=== PATIENT | male | born 1975 | race Caucasian/White ===

== ENCOUNTER 2018-02-17 08:59 | Emergency (ER) | payer BC, SELFPAY ==
[2018-02-17] VITALS (49 sets, daily range): BP systolic 104–195; BP diastolic 62–159; PULSE 57–156; RESP 10–29; TEMP 36.6; O2SAT 92–99
--- NOTE | 2018-02-17 09:08 | DI.CT_ITS ---
SYMPTOMS/DIAGNOSIS: CHEST PAIN AND TACHYCARDIA CHEST CT FOR PULMONARY EMBOLISM: CT angiography was performed with multi slice acquisition and multi planar and 3D reconstruction. There are no previous exams. There is no evidence of pulmonary emboli or aortic dissection. No infiltrate or effusion is seen. There is no evidence of pneumothorax. The visualized portions of the upper abdomen are unremarkable. IMPRESSION: Negative chest CT.
--- NOTE | 2018-02-17 09:14 | ED.GENADUL_ITS ---
Discharge Plan Disposition Patient Disposition: HOME Condition: Stable Discharge Details Chief Complaint: Palpitatns Clinical Impression: Atrial fibrillation, new onset Primary Care Provider: NONE,NONE ED Provider: Clement Palmer Home Meds and New Rx's Prescriptions: New diltiazem HCl [Cartia XT] 180 mg capsule,extended release 24hr 180 mg PO DAILY Qty: 30 RF: 0 Continue naproxen sodium [Aleve] 220 mg Capsule 220 mg PO PRNRF: 0 Discharge Instructions Instructions: Atrial Fibrillation (ED) Additional Instructions: you should be contacted with an appointment with a new primary care provider within a week take 81mg aspirin daily your primary care provider will need to prescribe the cardizem once finished if they feel you should continue it return to the emergency department for severe worsening pain or difficulty breathing Medical Decision Making 42 yo male who denies chronic medical problems comes in feeling his heart is beating fast since 1am. Denies any pressure or significant pain. Denies any sob or recent travel or surgeries. Is noted to be in afib with rvr and states he has never been diagnosed with this before. Will obtain lab work to eval for ischemia and treat with diltiazem. Given the tachycardia and unclear cause will obtain CT to eval for PE as well Pt's labs unremarkable, HR now in the 90's and stil in afib. Awaiting imaging imaging shows no acute pathology, HR did increase to 130's so second dose of IV dilt given and now in the 90's and remains HD stable. ADmission was recommended but after discussion with the pt and him remaining asymptomatic and hd stable with controlled hr he preferred to go home, has capacity to make his own decisions. He is willing to stay for a second troponin. Will order this. his [id number] score is 0 so no indication for anticoagulation second troponin negative, Hr in the 90's now and astymptomic, is sleeping on last exam. Will d/c home and return precautions given. Placed on f/u list to see a pcp within a week for new afib Differential Diagnosis acs, afib with rvr, pe Imaging Data Radiologic Study: Attestation: I personally reviewed and interpreted this imaging study as follows: Imaging: CT Scan Radiologist's impression: no acute findings Lab Data Lab results reviewed: Yes I reviewed the patient's lab results. ECG Data Attestation: I personally reviewed and interpreted this ECG (s) as follows: Prior ECG tracings: not available for review Interpretation: atrial fibrillation, rate of 152, right axis, no acute ischemic st findings 2nd ekg shows afib wih rate of 90, no acute st t wave changes, right axis, HPI General Mode of arrival: ambulatory . Date/Time Provider Initiated Documentation: 02/17/18 09:07 . Limitations to Documentation: no limitations . History of Present Illness 42 year old M presents to the emergency department with the chief complaint of palpitations, described as moderate, with intensity rated at 4. and is localized to the chest. Patient reports no radiation. Patient started experiencing this hour(s) (8) and it has been constant. No relieving factors improve symptom(s), No exacerbating factors reported . Patient notes no other symptoms.. Patient did receive the following treatments prior to arrival, none Related Data Home Medications Medication Instructions Recorded Confirmed diltiazem HCl [Cartia XT] 180 mg PO DAILY #30 cap 02/17/18 naproxen sodium [Aleve] 220 mg PO PRN 02/17/18 Previous Rx's Medication Instructions Recorded diltiazem HCl [Cartia XT] 180 mg PO DAILY #30 cap 02/17/18 Allergies Allergy/AdvReac Type Severity Reaction Status Date / Time No Known Allergies Allergy Unverified 02/17/18 09:13 Review of Systems Review of Systems All systems reviewed & are unremarkable except as noted in HPI and below Constitutional Denies chills, Denies fever(s) and Denies weakness Eyes Denies loss of vision ENT Denies change in voice Cardiovascular Denies chest pain and Denies dyspnea Respiratory Denies dyspnea Gastrointestinal Denies abdominal pain, Denies nausea and Denies vomiting Genitourinary Denies dysuria Musculoskeletal Denies joint swelling Integumentary/Breasts Denies rash Neurologic Denies loss of vision and Denies weakness Psychiatric Denies depression Endocrine Denies cold intolerance and Denies heat intolerance PFSH Social History Smoking/Tobacco Use Status: Former Tobacco Use Exam Const General: no acute distress Orientation: alert HENMT Head: normal to inspection Ears: external ears normal General nose exam: external nose normal Mouth: moist mucous membranes Eyes General: appearance normal, both eyes and all related structures Neck Neck: normal visual inspection Resp Effort & Inspection: normal respiratory effort and able to speak in complete sentences Cardio Jugular venous pressure: no JVD Rate: tachycardic Skin General skin exam: no rashes or lesions noted Neuro General: alert and oriented x3 Extrem General: normal to inspection Psych Mental Status: mental status grossly normal Critical Care Time Critical Care Time: Yes Total Critical Care Time: 60 (minutes) Attestation: time spent reviewing labs and ecg interpretation, reassessments, and hemodynamic monitoring and IV lorraine alessio administration in patient with afib with rvr and potential to deteriorate at any time
[2018-02-17 09:16] LABS: Abs Immature Grans 0.01 k/cumm (0.0-0.09); Absolute Basophil Count 0.04 k/cumm (0.0-0.2); Absolute Eosinophil Count 0.26 k/cumm (0.0-0.7); Absolute Lymphocyte Count 2.16 k/cumm (1.2-3.4); Absolute Monocyte Count 0.57 k/cumm (0.11-0.7); Basophils % 0.7; Eosinophils % 4.4; HCT 44.3 % (40.0-50.0); HGB 15.7 g/dL (13.5-17.5); Immature Grans % 0.2; Lymphocytes % 36.4; Mean Corp. HGB Concentration 35.4 g/dL (32.0-36.0); Mean Corpuscular Hemoglobin 31.4 pg (27.0-33.0); Mean Corpuscular Volume 88.6 fL (80-95); Mean Platelet Volume 9.2 fL (8.0-11.0); Monocytes % 9.6; Neutrophils % 48.7; Platelet Count 231 x1000/uL (130-400); White Blood Cell Count 5.94 k/cumm (4.4-10.8)
[2018-02-17 09:30] LABS: INR 1.1 (1.0-3.5); PTT Activated 23.7 sec (21.0-31.4); Prothrombin Time 10.5 sec (9.3-10.8)
[2018-02-17 09:35] LABS: ALT 34 U/L (12-78); AST 17 U/L (15-37); Albumin 4.1 g/dL (3.4-5.0); Alkaline Phosphatase 80 U/L (46-116); Anion Gap 10.5 mmol/L (3-11); BUN 17 mg/dL (7-18); Bilirubin, Total 0.8 mg/dL (0.2-1.0); CO2 26.5 mmol/L (21.0-32.0); CREATININE 0.98 mg/dL (0.70-1.30); Calcium 9.1 mg/dL (8.5-10.1); Chloride 102 mmol/L (98-107); Glucose 113 mg/dL (70-100); NT-proBNP 190 pg/mL; Potassium 4.2 mmol/L (3.5-5.1); Sodium 139 mmol/L (136-145); Total Protein 7.3 g/dL (6.4-8.2)
[2018-02-17 09:37] LABS: Troponin I < 0.02 ng/mL (0.00-0.06)
[2018-02-17] MEDS: Omnipaque 350 MG/ML 100 ML BTL IJ (09:48)
--- NOTE | 2018-02-17 10:07 | DI.VRAD_ITS ---
EXAM: CT Angiography Chest With Intravenous Contrast EXAM DATE/TIME: 02/17/2018 9:11 AM CLINICAL HISTORY: 42 years old, male; Pain and signs and symptoms; Other: Tachycardia; Chest pain; Type not specified TECHNIQUE: Axial computed tomographic angiography images of the chest with intravenous contrast using CT angiography protocol. All CT scans at this facility use at least one of these dose optimization techniques: automated exposure control; mA and/or kV adjustment per patient size (includes targeted exams where dose is matched to clinical indication); or iterative reconstruction. Coronal and sagittal reformatted images were created and reviewed. MIP reconstructed images were created and reviewed. CONTRAST: 100 ml of Omnipaque 350 administered intravenously. COMPARISON: No relevant prior studies available. FINDINGS: Pulmonary arteries: Normal. No pulmonary emboli. Aorta: Normal. No aortic aneurysm. No aortic dissection. Lungs: Normal. No consolidation. No masses. Pleural space: Normal. No pneumothorax. No pleural effusion. Heart: Normal. No cardiomegaly. No pericardial effusion. Bones/joints: Unremarkable. No acute fracture. Soft tissues: Unremarkable. Lymph nodes: Unremarkable. No enlarged lymph nodes. IMPRESSION: No acute findings. Dictated and Authenticated by: Zulema Mitchell MD. Ordering:RIKI SHOEMAKER MD
[2018-02-17 12:16] LABS: Troponin I < 0.02 ng/mL (0.00-0.06)
--- NOTE | 2018-02-19 08:27 | PDOC.ERCMPRO ---
Care Management Progress Note 02/19-Dr. 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 Patient does not have a PCP. Referral faxed to SHAYNA dodd am.
--- NOTE | 2018-02-19 08:28 | CMPROGNOTE_ITS ---
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 Patient does not have a PCP. Referral faxed to SHAYNA dodd am.
== END 2018-02-17 12:53 | disposition home or self-care (01) ==
PROVIDERS: Emergency Provider Emergency Medicine
DX: I48.91 Unspecified atrial fibrillation (principal); I47.2 Ventricular tachycardia
CPT/HCPCS: 36415; 71275; 80053; 93005; 96374; 96376; 99291; 83735; 83880; 84484; 85025; 85610; 85730; 93010; J3490

== ENCOUNTER 2018-02-28 08:13 | Outpatient (CLI) | payer BC, SELFPAY ==
[2018-02-28 10:16] LABS: Cholesterol 180 mg/dL (50-200); HDL Cholesterol 32 mg/dL (40-60); LDL CHOLESTEROL 103 mg/dL (<100); TSH (W/Ref FT4) 2.43 uIU/mL (0.358-3.74); Triglyceride 248 mg/dL (30-150)
== END 2018-02-28 08:33 ==
PROVIDERS: PCP Family Medicine; Visit Provider Family Medicine
DX: I48.91 Unspecified atrial fibrillation (principal)
CPT/HCPCS: 36415; 80061; 83721; 84443

== ENCOUNTER 2018-03-06 00:39 | Outpatient (CLI) | payer BC, SELFPAY ==
--- NOTE | 2018-03-06 06:00 | MERGE_ITS ---
*[facility]* *[facility]* [address] [place] [address] Date of study: 03/06/2018 Transthoracic Echocardiography M-mode, complete 2D, complete spectral Doppler, and color Doppler *STUDY CONCLUSIONS* Summary: 1. Left ventricle: The cavity size was normal. Wall thickness was normal. Systolic function was normal. The estimated ejection fraction was 60-65%. Wall motion was normal; there were no regional wall motion abnormalities. 2. Right ventricle: The cavity size was dilated. Systolic function was normal. 3. Left atrium: The atrium was mildly dilated. 4. Mitral valve: There was mild regurgitation. 5. Inferior vena cava: The vessel was patent and normal in size. The respirophasic diameter changes were in the normal range (greater than or equal to 50%), consistent with normal central venous pressure. *PATIENT PRESENTATION* Height: 190.5cm ((75in) ) S/D Pressure: 116 / 63 Weight: 117.9kg ((259.5lb) ) BSA: 2.53m^2 Test start time: 07:40 AM. Test stop time: 08:40 AM. 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 This study was interpreted by [facility]. Pertinent images and digital data are archived for permanent storage and are available for subsequent review. No prior study was available for comparison. Study status: Routine. Transthoracic echocardiography. M-mode, complete 2D, complete spectral Doppler, and color Doppler. A Transthoracic Echocardiogram was performed. Scanning was performed from the parasternal, apical, subcostal, and suprasternal notch acoustic windows. Images were obtained using an [id number] cardiac ultrasound machine. Image quality was adequate. Study completion: The patient tolerated the procedure well. There were no complications. History: PMH: New onset afib. *CARDIAC ANATOMY* Left ventricle: The cavity size was normal. Wall thickness was normal. Systolic function was normal. The estimated ejection fraction was 60-65%. Wall motion was normal; there were no regional wall motion abnormalities. Findings consistent with diastolic dysfunction. There was no evidence of elevated ventricular filling pressure by Doppler parameters. Aortic valve: Trileaflet; normal thickness leaflets. Mobility was not restricted. Doppler: Transvalvular velocity was within the normal range. There was no stenosis. There was no significant regurgitation. VTI ratio of LVOT to aortic valve: 0.81. Valve area (VTI): 3.2cm^2. Indexed valve area (VTI): 1.3cm^2/m^2. Peak velocity ratio of LVOT to aortic valve: 0.77. Valve area (Vmax): 3.1cm^2. Indexed valve area (Vmax): 1.2cm^2/m^2. Mean velocity ratio of LVOT to aortic valve: 0.8. Valve area (Vmean): 3.2cm^2. Indexed valve area (Vmean): 1.3cm^2/m^2. Mean gradient (S): 2.8mm Hg. Peak gradient (S): 4.4mm Hg. Aorta: Aortic root: The aortic root was normal in size. Ascending aorta: The ascending aorta was normal in size. Mitral valve: Mildly thickened leaflets. Mobility was not restricted. Doppler: Transvalvular velocity was within the normal range. There was no evidence for stenosis. There was mild regurgitation. Valve area by pressure half-time: 4.5cm^2. Indexed valve area by pressure half-time: 1.8cm^2/m^2. Left atrium: The atrium was mildly dilated. Right ventricle: The cavity size was dilated. Systolic function was normal. Pulmonic valve: Poorly visualized. Doppler: Transvalvular velocity was within the normal range. There was no evidence for stenosis. There was trivial regurgitation. Tricuspid valve: Structurally normal valve. Doppler: Transvalvular velocity was within the normal range. There was no evidence for stenosis. There was trivial regurgitation. Pulmonary artery: Poorly visualized. Pulmonary systolic pressure was within the normal range, in the range of 25mm Hg to 30mm Hg. Right atrium: The atrium was normal in size. Pericardium: There was no pericardial effusion. Systemic veins: Inferior vena cava: Well visualized. The vessel was patent and normal in size. The respirophasic diameter changes were in the normal range (greater than or equal to 50%), consistent with normal central venous pressure. Baseline ECG: Normal sinus rhythm. Measurements Left ventricle Value Reference LV ID, ED, PLAX 5.7 cm 3.5 - 6.0 LV ID, ES, PLAX 3.6 cm 2.1 - 4.0 LV PW thickness, ED, PLAX 1.0 cm LV end-diastolic volume, 1-p A2C 140 ml LV ejection fraction, 1-p A2C 64 % LV end-diastolic volume, 1-p A4C 168 ml LV ejection fraction, 1-p A4C 68 % LV e', lateral 0.104 m/sec LV E/e', lateral 6 LV e', medial 0.087 m/sec LV E/e', medial 7 LV e', average 0.095 m/sec LV E/e', average 7 Ventricular septum Value Reference IVS thickness, ED, PLAX 1.0 cm LVOT Value Reference LVOT ID, A-P 2.3 cm LVOT area 4 cm^2 LVOT peak velocity, S 0.81 m/sec LVOT mean velocity, S 0.64 m/sec LVOT VTI, S 17.8 cm LVOT peak gradient, S 2.6 mm Hg LVOT mean gradient, S 1.8 mm Hg Stroke volume (SV), LVOT DP 71 ml Stroke index (SV/bsa), LVOT DP 28 ml/m^2 Aortic valve Value Reference Aortic valve peak velocity, S 1.1 m/sec Aortic valve mean velocity, S 0.8 m/sec Aortic valve VTI, S 22.0 cm Aortic mean gradient, S 2.8 mm Hg Aortic peak gradient, S 4.4 mm Hg VTI ratio, LVOT/AV 0.81 Aortic valve area, VTI 3.2 cm^2 Velocity ratio, peak, LVOT/AV 0.77 Aortic valve area, peak velocity 3.1 cm^2 Velocity ratio, mean, LVOT/AV 0.8 Aortic valve area, mean velocity 3.2 cm^2 Aortic valve area/bsa, mean velocity 1.3 cm^2/m^2 Aorta Value Reference Aortic root ID, ED 3.6 cm Ascending aorta ID, A-P, S 3.0 cm RVOT Value Reference RVOT VTI, S 16.3 cm Left atrium Value Reference LA ID, A-P, ES 4.2 cm LA ID/bsa, A-P 1.7 cm/m^2 <=2.2 LA area, ES, A4C (H) 26 cm^2 8.8 - 23.4 LA area, ES, A2C 19 cm^2 LA volume/bsa, ES, 1-p A4C 41 ml/m^2 LA volume, ES, 2-p 80 ml LA volume/bsa, ES, 2-p 32 ml/m^2 LA/aortic root ratio 1.17 Mitral valve Value Reference Mitral E-wave peak velocity 0.63 m/sec Mitral A-wave peak velocity 0.45 m/sec Mitral deceleration time 169 ms 150 - 230 Mitral pressure half-time 49 ms Mitral E/A ratio, peak 1.4 Mitral valve area, PHT, DP 4.5 cm^2 Tricuspid valve Value Reference Tricuspid regurg peak velocity 2.4 m/sec Tricuspid peak RV-RA gradient 23.4 mm Hg Right atrium Value Reference RA area, ES, A4C 17.6 cm^2 8.3 - 19.5 Legend: (L) and (H) svitlana values outside specified reference range. I have personally reviewed the images and have reviewed and edited the reported findings. Electronically signed by Kori Oswald 03/06/2018 09:15
== END 2018-03-06 00:59 ==
PROVIDERS: PCP Family Medicine; Visit Provider Family Medicine
DX: I48.91 Unspecified atrial fibrillation (principal); I34.0 Nonrheumatic mitral (valve) insufficiency; R00.2 Palpitations
CPT/HCPCS: 93306

== ENCOUNTER 2018-03-07 04:44 | Emergency (ER) | payer BC, SELFPAY ==
[2018-03-07] VITALS (103 sets, daily range): BP systolic 86–126; BP diastolic 48–95; PULSE 50–149; RESP 8–27; TEMP 36.4; O2SAT 93–100
--- NOTE | 2018-03-07 04:54 | ED.GENADUL_ITS ---
Discharge Plan Disposition Patient Disposition: HOME Condition: Good Discharge Details Chief Complaint: Chest Pain Clinical Impression: A-fib Primary Care Provider: Roe Mooney ED Provider: Javad Rendon Home Meds and New Rx's Prescriptions: New apixaban [Eliquis] 5 mg tablet 5 mg PO BID Qty: 60 RF: 0 No Action naproxen sodium [Aleve] 220 mg Capsule 220 mg PO PRNRF: 0 diltiazem HCl [Cartia XT] 180 mg capsule,extended release 24hr 180 mg PO DAILY Qty: 30 RF: 0 aspirin [Aspirin Low Dose] 81 mg Tablet,Delayed Release (Dr/Ec) 81 mg PO DAILY RF: 0 Discharge Instructions Instructions: Atrial Fibrillation (ED), Blood Thinners (ED) Additional Instructions: Please avoid caffeine and alcohol. Please take your blood thinner every day as directed. Please stop taking your daily aspirin and naproxen as this can interact with the Eliquis. Please follow-up with Dr. Diego the carrier loader as soon as possible for reassessment. If you notice any worsening of your symptoms , or any new symptoms such as vomiting, diarrhea, fever, chills, shortness of breath, chest pain, numbness, weakness, or fainting , please return immediately to the emergency department for reevaluation. Please follow up with your primary care provider as soon as possible for reassessment and reevaluation. As always, it was a pleasure participating in your medical care today. Referrals: Gaston Olivo MD [MD CONSULTING PHYSICIAN] - Discharge Data Discharge Date/Time-TO BE ENTERED AT DEPARTURE: 03/07/18 13:07 Medical Decision Making Patient noted to be in atrial fibrillation with rapid ventricular response. He has a little bit of epigastric discomfort but not true chest pain. Previous workup including recent ECHO has been normal. Will treat with IV Cardizem for rate control as it worked previously. He does not need anticoagulation as his chads 2 vascular score is 0. Will get repeat electrolytes and 2 sets of troponins due to the epigastric discomfort. Will monitor rhythm while here. Will attempt to gain rate control so that we may discharge if possible. Patient's labs are fine. First troponin negative. He has received IV Cardizem , oral Cardizem, 2 doses of IV Lopressor. He continues to have rates varying from 90-120 and occasionally spikes to 140. His blood pressure for the most part has been fine. I have kept him n.p.o. He had a normal echo yesterday. He went into atrial fibrillation last night. Cardiology is available today in the hospital so it is possible we may potentially be able to cardiovert him. Patient will be signed out to my colleague, Dr. Rendon. I will have him contact cardiology for discussion regarding management/possible cardioversion. Medical Records Medical records reviewed: Yes I reviewed the patient's medical records. Lab Data Lab results reviewed: Yes I reviewed the patient's lab results. ECG Data Attestation: I personally reviewed and interpreted this ECG (s) as follows: Prior ECG tracings: available for review Interpretation: Atrial fibrillation with rapid ventricular response at a rate of 153. Normal intervals and axis. No acute ST changes. HPI General Mode of arrival: ambulatory . Date/Time Provider Initiated Documentation: 03/07/18 04:53 . Limitations to Documentation: no limitations . Information obtained by: patient and old records reviewed . HPI Narrative: Patient presents to the ED with palpitations and fast heart rate. Patient seen here at the end of January with similar complaint. Diagnosed with atrial fibrillation and sent home on Cardizem. He has subsequently followed up with a PCP. He had an ECHO done as well as some further blood work and was referred to cardiology whom he has not seen yet. He continues on Cardizem and has not missed any doses that he is aware of. He is having a little bit of epigastric discomfort that he describes as indigestion but not true chest pain. He has no shortness of breath. He does not feel lightheaded or dizzy. He cannot really state when exactly palpitations started but it was sometime last night. Related Data Home Medications Medication Instructions Recorded Confirmed diltiazem HCl [Cartia XT] 180 mg PO DAILY #30 cap 02/17/18 03/07/18 naproxen sodium [Aleve] 220 mg PO PRN 02/17/18 apixaban [Eliquis] 5 mg PO BID #60 tab 03/07/18 aspirin [Aspirin Low Dose] 81 mg PO DAILY 03/07/18 03/07/18 Previous Rx's Medication Instructions Recorded diltiazem HCl [Cartia XT] 180 mg PO DAILY #30 cap 02/17/18 apixaban [Eliquis] 5 mg PO BID #60 tab 03/07/18 Allergies Allergy/AdvReac Type Severity Reaction Status Date / Time No Known Allergies Allergy Unverified 02/23/18 08:37 General STEFFANY: 4 Review of Systems Constitutional Denies chills, Denies fever(s), Denies headache(s) and Denies weakness Eyes Denies eye discharge and Denies eye pain ENT Denies otalgia, Denies headache(s) and Denies sore throat Cardiovascular Reports chest pain (epigastric discomfort), Denies diaphoresis, Denies syncope, Reports rapid heart rate, Denies pedal edema, Reports palpitations and Denies dyspnea Respiratory Denies cough and Denies dyspnea Gastrointestinal Denies abdominal pain, Denies diarrhea, Denies nausea and Denies vomiting Genitourinary Denies hematuria and Denies dysuria Musculoskeletal Denies back pain, Denies myalgias, Denies arthralgias and Denies numbness Integumentary/Breasts Denies rash Neurologic Denies syncope, Denies headache(s), Denies focal weakness, Denies numbness and Denies weakness Endocrine Reports palpitations [facility] Family History Mother Rheumatoid arthritis Father Liver cancer Paternal Grandfather No problems noted. Maternal Grandfather No problems noted. 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 caffeine: No (not since ED visit for afib (02/17/18)) daily servings fruits/ve-4 Smoking/Tobacco Use Status: Former Tobacco Use how long ago did patient quit smokin years ago- 2014 alcohol intake: current alcohol intake frequency: 0-2 drinks per day Alcohol type: beer and hard liquor substance use type: marijuana seatbelt use: always helmet use: No firearms in home: Yes firearms unloaded and locked: Yes Surgical History History of ankle surgery (Inactive) Exam Const General: cooperative, comfortable and no acute distress Orientation: alert and oriented x3 [facility] Head: normocephalic and atraumatic Mouth: moist mucous membranes Neck Neck: normal visual inspection, trachea midline and supple Resp Effort & Inspection: normal respiratory effort Auscultation: clear to auscultation bilaterally Cardio Rate: tachycardic Rhythm: abnormal rhythm irregularly irregular Heart Sounds: S1 normal and S2 normal Pulses: radial pulses present GI Palpation: soft, not firm, no guarding and nontender Skin General skin exam: no rashes or lesions noted Neuro General: alert, oriented x3, gait normal, no focal motor deficits and CN's II- XI intact bilaterally Extrem General: no clubbing, cyanosis or edema
[2018-03-07] MEDS: Normal Saline 1,000 ML 125 ML IV (05:20)
[2018-03-07 05:33] LABS: BUN 22 mg/dL (7-18); CREATININE 0.88 mg/dL (0.70-1.30); Calcium 8.6 mg/dL (8.5-10.1); Chloride 101 mmol/L (98-107); Glucose 105 mg/dL (70-100); Potassium 3.8 mmol/L (3.5-5.1); Sodium 137 mmol/L (136-145)
[2018-03-07 05:40] LABS: Magnesium 2.2 mg/dL (1.8-2.4); Troponin I < 0.02 ng/mL (0.00-0.06)
[2018-03-07] MEDS: Metoprolol 5 MG/5 ML VIAL IVP ×2 (06:49→07:34)
[2018-03-07 09:44] LABS: Troponin I < 0.02 ng/mL (0.00-0.06)
--- NOTE | 2018-03-07 12:28 | W.ED.GENAD ---
Discharge Plan Disposition Patient Disposition: HOME Condition: Good Discharge Details Chief Complaint: Chest Pain Clinical Impression: A-fib Primary Care Provider: Roe Mooney ED Provider: Javad Rendon Home Meds and New Rx's Prescriptions: New apixaban [Eliquis] 5 mg tablet 5 mg PO BID Qty: 60 RF: 0 No Action naproxen sodium [Aleve] 220 mg Capsule 220 mg PO PRNRF: 0 diltiazem HCl [Cartia XT] 180 mg capsule,extended release 24hr 180 mg PO DAILY Qty: 30 RF: 0 aspirin [Aspirin Low Dose] 81 mg Tablet,Delayed Release (Dr/Ec) 81 mg PO DAILY RF: 0 Discharge Instructions Instructions: Atrial Fibrillation (ED), Blood Thinners (ED) Additional Instructions: Please avoid caffeine and alcohol. Please take your blood thinner every day as directed. Please stop taking your daily aspirin and naproxen as this can interact with the Eliquis. Please follow-up with Dr. Diego the student specialist as soon as possible for reassessment. If you notice any worsening of your symptoms, or any new symptoms such as vomiting, diarrhea, fever, chills, shortness of breath, chest pain, numbness, weakness, or fainting , please return immediately to the emergency department for reevaluation. Please follow up with your primary care provider as soon as possible for reassessment and reevaluation. As always, it was a pleasure participating in your medical care today. Referrals: Gaston Olivo MD [MD CONSULTING PHYSICIAN] - Medical Decision Making The case is signed out to be my my colleague Dr. Calderon. In spite of the patient's oral medications including the IV medications of 20 of Cardizem IV, 30 of oral Cardizem, and 10 mg of Lopressor patient still bounce back and forth from A. fib with RVR to a normal A. fib rate. I did discuss the case again with the patient does admit to drinking some alcohol last night, which I feel there may be a component of holiday heart which might have brought on his symptoms. He has been avoiding caffeine though as initially directed. Multiple calls went out to the student specialist, and a call was eventually returned at 11 AM. His recommendation was for cardioversion here in the emergency department after review of the patient's symptoms, symptoms onset, and a personal review of the echocardiogram that he had yesterday. Dr. Hercules had no additional recommendations for starting new cardiac medications but did recommend starting Eliquis 5 mg twice daily to be used until follow-up. Cardioversion was performed with anesthesia at bedside utilizing propofol. The procedure was completed at 120 J with synchronized cardioversion, with appropriate sedation enabled the patient was cardioverted, returned to a normal sinus rhythm with no evidence of A. fib or A. fib with RVR. He tolerated the procedure extremely well. Anesthesia remained until the sedation completely wore off. No complications. During a observation phase afterwards he continued to show no evidence of repeat atrial fibrillation with RVR. We will start the patient on Eliquis with his first dose here. Dr. Hercules is aware of the patient and will have follow-up with him. We discussed red flags which to return the patient understands I have extensively reviewed the treatment plan and discharge instructions with the patient and their family. I have addressed all patient concerns at this time. The patient and family was made aware of what symptoms to monitor for that would warrant a return to the emergency department. Discussed the plan with the patient and family, they demonstrate verbal understanding and agreement with our assessment and plan at this time. Time out was taken to identify the correct patient, procedure, and site. Risks and benefits were discussed with the patient and consent was obtained. The cardioversion pads are placed in the front to back orientation overlying the heart. After appropriate analgesia and anesthesia are obtained, the defibrillator is synchronized to the patient's heart rhythm. 120 J of energy are delivered and the patient's rhythm converted to normal sinus. The patient tolerated the procedure. There were no complications. A post cardioversion EKG is obtained which shows normal sinus rhythm EKG 12: 18 post cardioversion rate 56, intervals normal, sinus bradycardia, no ST elevation or depression, inverted T wave in V1. No significant Q waves. Normal EKG. HPI General Mode of arrival: ambulatory. Date/Time Provider Initiated Documentation: 03/07/18 04:53. Limitations to Documentation: no limitations. Information obtained by: patient and old records reviewed. Related Data Home Medications Medication Instructions Recorded Confirmed diltiazem HCl [Cartia XT] 180 mg PO DAILY #30 cap 02/17/18 03/07/18 naproxen sodium [Aleve] 220 mg PO PRN 02/17/18 apixaban [Eliquis] 5 mg PO BID #60 tab 11/07/18 aspirin [Aspirin Low Dose] 81 mg PO DAILY 03/07/18 03/07/18 Previous Rx's Medication Instructions Recorded diltiazem HCl [Cartia XT] 180 mg PO DAILY #30 cap 02/17/18 apixaban [Eliquis] 5 mg PO BID #60 tab 03/07/18 Allergies Allergy/AdvReac Type Severity Reaction Status Date / Time No Known Allergies Allergy Unverified 02/23/18 08:37 General Stated Complaint: Chest Pain STEFFANY: 4 PFSH Family History Mother Rheumatoid arthritis Father Liver cancer Paternal Grandfather No problems noted. Maternal Grandfather No problems noted. 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 caffeine: No (not since ED visit for afib (02/17/18)) daily servings fruits/ve-4 Smoking/Tobacco Use Status: Former Tobacco Use how long ago did patient quit smokin years ago- 2013 alcohol intake: current alcohol intake frequency: 0-2 drinks per day Alcohol type: beer and hard liquor substance use type: marijuana seatbelt use: always helmet use: No firearms in home: Yes firearms unloaded and locked: Yes Surgical History History of ankle surgery (Inactive) Course Vital Signs Respiratory Rate 16 03/07/18 04:44 Pulse Oximetry 99 03/07/18 04:44 Temperature 36.4 C L 03/07/18 04:50 Temperature Source Temporal Artery Scan 03/07/18 04:50 Pulse 92 H 03/07/18 07:41 Pulse 117 H 03/07/18 07:41 Respiratory Rate 27 H 03/07/18 06:50 Respiratory Effort 03/07/18 04:55 Respiratory Depth Normal 03/07/18 04:55 Respiratory Pattern Normal 03/07/18 04:55 Blood Pressure 111/61 03/07/18 07:41 Blood Pressure Mean 69 03/07/18 07:41 Pulse Oximetry 96 03/07/18 07:41 Oxygen Delivery Method Room Air 03/07/18 04:50 Oxygen Flow Rate 0 03/07/18 04:50 Lab/Test Results Lab/Test Results: Laboratory Tests Range/Units 03/07/18 03/07/18 03/07/18 04:52 04:52 09:12 Sodium (136-145) mmol/L 137 Potassium (3.5-5.1) mmol/L 3.8 Chloride (98-107) mmol/L 101 Carbon Dioxide (21.0-32.0) mmol/L 24.0 Anion Gap (3-11) mmol/L 12.0 H BUN (7-18) mg/dL 22 H Creatinine (0.70-1.30) mg/dL 0.88 Estimated GFR/1.73 m2 (mL/min/1.73m2) >= 60.00 Glucose (70-100) mg/dL 105 H Calcium (8.5-10.1) mg/dL 8.6 Magnesium (1.8-2.4) mg/dL 2.2 Troponin I (0.00-0.06) ng/mL < 0.02 < 0.02
--- NOTE | 2018-03-07 12:33 | ED.GENADUL_ITS ---
Discharge Plan Disposition Patient Disposition: HOME Condition: Good Discharge Details Chief Complaint: Chest Pain Clinical Impression: A-fib Primary Care Provider: Roe Mooney ED Provider: Javad Rendon Home Meds and New Rx's Prescriptions: New apixaban [Eliquis] 5 mg tablet 5 mg PO BID Qty: 60 RF: 0 No Action naproxen sodium [Aleve] 220 mg Capsule 220 mg PO PRNRF: 0 diltiazem HCl [Cartia XT] 180 mg capsule,extended release 24hr 180 mg PO DAILY Qty: 30 RF: 0 aspirin [Aspirin Low Dose] 81 mg Tablet,Delayed Release (Dr/Ec) 81 mg PO DAILY RF: 0 Discharge Instructions Instructions: Atrial Fibrillation (ED), Blood Thinners (ED) Additional Instructions: Please avoid caffeine and alcohol. Please take your blood thinner every day as directed. Please stop taking your daily aspirin and naproxen as this can interact with the Eliquis. Please follow-up with Dr. Diego the methods study analyst as soon as possible for reassessment. If you notice any worsening of your symptoms , or any new symptoms such as vomiting, diarrhea, fever, chills, shortness of breath, chest pain, numbness, weakness, or fainting , please return immediately to the emergency department for reevaluation. Please follow up with your primary care provider as soon as possible for reassessment and reevaluation. As always, it was a pleasure participating in your medical care today. Referrals: Gaston Olivo MD [MD CONSULTING PHYSICIAN] - Medical Decision Making The case is signed out to be my my colleague Dr. Calderon. In spite of the patient 's oral medications including the IV medications of 20 of Cardizem IV, 30 of oral Cardizem, and 10 mg of Lopressor patient still bounce back and forth from A. fib with RVR to a normal A. fib rate. I did discuss the case again with the patient does admit to drinking some alcohol last night, which I feel there may be a component of holiday heart which might have brought on his symptoms. He has been avoiding caffeine though as initially directed. Multiple calls went out to the methods study analyst, and a call was eventually returned at 11 AM. His recommendation was for cardioversion here in the emergency department after review of the patient's symptoms, symptoms onset, and a personal review of the echocardiogram that he had yesterday. Dr. Hercules had no additional recommendations for starting new cardiac medications but did recommend starting Eliquis 5 mg twice daily to be used until follow-up. Cardioversion was performed with anesthesia at bedside utilizing propofol. The procedure was completed at 120 J with synchronized cardioversion, with appropriate sedation enabled the patient was cardioverted, returned to a normal sinus rhythm with no evidence of A. fib or A. fib with RVR. He tolerated the procedure extremely well. Anesthesia remained until the sedation completely wore off. No complications. During a observation phase afterwards he continued to show no evidence of repeat atrial fibrillation with RVR. We will start the patient on Eliquis with his first dose here. Dr. Hercules is aware of the patient and will have follow-up with him. We discussed red flags which to return the patient understands I have extensively reviewed the treatment plan and discharge instructions with the patient and their family. I have addressed all patient concerns at this time. The patient and family was made aware of what symptoms to monitor for that would warrant a return to the emergency department. Discussed the plan with the patient and family, they demonstrate verbal understanding and agreement with our assessment and plan at this time. Time out was taken to identify the correct patient, procedure, and site. Risks and benefits were discussed with the patient and consent was obtained. The cardioversion pads are placed in the front to back orientation overlying the heart. After appropriate analgesia and anesthesia are obtained, the defibrillator is synchronized to the patient's heart rhythm. 120 J of energy are delivered and the patient's rhythm converted to normal sinus. The patient tolerated the procedure. There were no complications. A post cardioversion EKG is obtained which shows normal sinus rhythm EKG 12: 18 post cardioversion rate 56, intervals normal, sinus bradycardia, no ST elevation or depression, inverted T wave in V1. No significant Q waves. Normal EKG. HPI General Mode of arrival: ambulatory . Date/Time Provider Initiated Documentation: 03/07/18 04:53 . Limitations to Documentation: no limitations . Information obtained by: patient and old records reviewed . Related Data Home Medications Medication Instructions Recorded Confirmed diltiazem HCl [Cartia XT] 180 mg PO DAILY #30 cap 02/17/18 03/07/18 naproxen sodium [Aleve] 220 mg PO PRN 02/17/18 apixaban [Eliquis] 5 mg PO BID #60 tab 11/07/18 aspirin [Aspirin Low Dose] 81 mg PO DAILY 03/07/18 03/07/18 Previous Rx's Medication Instructions Recorded diltiazem HCl [Cartia XT] 180 mg PO DAILY #30 cap 02/17/18 apixaban [Eliquis] 5 mg PO BID #60 tab 03/07/18 Allergies Allergy/AdvReac Type Severity Reaction Status Date / Time No Known Allergies Allergy Unverified 02/23/18 08:37 General Stated Complaint: Chest Pain STEFFANY: 4 PFSH Family History Mother Rheumatoid arthritis Father Liver cancer Paternal Grandfather No problems noted. Maternal Grandfather No problems noted. 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 caffeine: No (not since ED visit for afib (02/17/18)) daily servings fruits/ve-4 Smoking/Tobacco Use Status: Former Tobacco Use how long ago did patient quit smokin years ago- 2013 alcohol intake: current alcohol intake frequency: 0-2 drinks per day Alcohol type: beer and hard liquor substance use type: marijuana seatbelt use: always helmet use: No firearms in home: Yes firearms unloaded and locked: Yes Surgical History History of ankle surgery (Inactive) Course Vital Signs Respiratory Rate 16 03/07/18 04:44 Pulse Oximetry 99 03/07/18 04:44 Temperature 36.4 C L 03/07/18 04:50 Temperature Source Temporal Artery Scan 03/07/18 04:50 Pulse 92 H 03/07/18 07:41 Pulse 117 H 03/07/18 07:41 Respiratory Rate 27 H 03/07/18 06:50 Respiratory Effort 03/07/18 04:55 Respiratory Depth Normal 03/07/18 04:55 Respiratory Pattern Normal 03/07/18 04:55 Blood Pressure 111/61 03/07/18 07:41 Blood Pressure Mean 69 03/07/18 07:41 Pulse Oximetry 96 03/07/18 07:41 Oxygen Delivery Method Room Air 03/07/18 04:50 Oxygen Flow Rate 0 03/07/18 04:50 Lab/Test Results Lab/Test Results: Laboratory Tests Range/Units 03/07/18 03/07/18 03/07/18 04:52 04:52 09:12 Sodium (136-145) mmol/L 137 Potassium (3.5-5.1) mmol/L 3.8 Chloride (98-107) mmol/L 101 Carbon Dioxide (21.0-32.0) mmol/L 24.0 Anion Gap (3-11) mmol/L 12.0 H BUN (7-18) mg/dL 22 H Creatinine (0.70-1.30) mg/dL 0.88 Estimated GFR/1.73 m2 (mL/min/1.73m2) >= 60.00 Glucose (70-100) mg/dL 105 H Calcium (8.5-10.1) mg/dL 8.6 Magnesium (1.8-2.4) mg/dL 2.2 Troponin I (0.00-0.06) ng/mL < 0.02 < 0.02
[2018-03-07] MEDS: Normal Saline 250 ML 500 ML IV (12:53)
[2018-03-07] MEDS: Apixaban 5 MG TAB PO (12:59)
== END 2018-03-07 13:07 | disposition home or self-care (01) ==
PROVIDERS: Emergency Medicine; Emergency Provider Student in an Organized Health Care Education/Training Program; PCP Family Medicine
DX: I48.91 Unspecified atrial fibrillation (principal); I47.2 Ventricular tachycardia; R10.13 Epigastric pain; Z79.01 Long term (current) use of anticoagulants
CPT/HCPCS: 36415; 80048; 93005; 96361; 96374; 96375; 96376; 99284; 83735; 84484; 93010; 99285

== ENCOUNTER 2018-03-18 06:12 | Emergency (ER) | payer BC, SELFPAY ==
[2018-03-18] VITALS (58 sets, daily range): BP systolic 96–149; BP diastolic 53–100; PULSE 52–159; RESP 9–52; TEMP 36; O2SAT 88–99
--- NOTE | 2018-03-18 06:44 | W.ED.GENAD ---
Discharge Plan Disposition Patient Disposition: HOME Condition: Stable Discharge Details Chief Complaint: Palpitatns Clinical Impression: Atrial fibrillation Primary Care Provider: Roe Mooney ED Provider: Amalia Macedo Home Meds and New Rx's Prescriptions: New metoprolol succinate 50 mg tablet extended release 24 hr 50 mg PO DAILY Qty: 30 RF: 0 diltiazem HCl 240 mg capsule,extended release 24 hr 240 mg PO DAILY Qty: 30 RF: 0 Continue diclofenac sodium [Voltaren] 1 % gel 2 gm TP QID Qty: 100 RF: 12 apixaban [Eliquis] 5 mg tablet 5 mg PO BID Qty: 60 RF: 0 Discontinued diltiazem HCl [Cartia XT] 180 mg capsule,extended release 24hr 180 mg PO DAILY Qty: 90 RF: 3 Discharge Instructions Instructions: Atrial Fibrillation (ED) Additional Instructions: Stop taking your 180mg diltiazem and start taking 240mg diltiazem and 50mg metoprolol once daily as directed. Continue taking your Eliquis as directed. Call [facility] cardiology clinic tomorrow at [facility]'s main number [phone] and ask for cardiology. You should receive a call from care management regarding any assistance with obtaining this cardiology appointment. Follow-up with obtaining the sleep study and stress test. Discharge Data Discharge Date/Time-TO BE ENTERED AT DEPARTURE: 03/18/18 12:02 Discharge Physician: Amalia Macedo Medical Decision Making <Bubba Calderon MD - Last Filed: 03/21/18 20:29> Medical Records Medical records reviewed: Yes I reviewed the patient's medical records. Patient arrives in [facility] rapid A. fib. This is his third visit in about the same number of weeks. On his last visit his he was cardioverted and has lasted for about a week. He has not missed any doses of his Cardizem. He is on Eliquis. He did not have alcohol last night. He has not yet had caffeine this morning. He does have some epigastric discomfort which he has had previously. He otherwise only feels palpitations and fast heart rate. We will place an IV and give IV Cardizem bolus for rate control. Will repeat chemistries and troponin. Probably would not cardiovert at this point unless he becomes unstable. He appears to be going into atrial fibrillation about once every week now. Cannot keep cardioverting as he does not hold for very long. He does not have an appointment with cardiology until June. Will likely benefit from referral to [facility] EPS. Will give oral short acting Cardizem after IV bolus as well. If can get rate control can probably go home and increase his Cardizem LA dose from 180 to 360. First troponin is negative. Electrolytes are fine. He has for the most part become rate controlled with the IV Cardizem. The oral Cardizem has been given. Case discussed with oncoming physician Dr. Macedo. Agree with not cardioverting here in less unstable. Will get second troponin and consider discussing with [facility] cardiology regarding further management and follow-up. As long as he is rate controlled feel comfortable discharging him with follow-up. Lab Data Lab results reviewed: Yes I reviewed the patient's lab results. ECG Data Attestation: I personally reviewed and interpreted this ECG (s) as follows: Prior ECG tracings: available for review Interpretation: Atrial fibrillation at a rate of 153. Normal axis and intervals. No acute ST changes. <Amalia Macedo, DO - Last Filed: 03/18/18 11:45> Please see Dr. Calderon's notes for initial presentation, exam and plan. Patient is a 42-year-old male who was diagnosed with new onset atrial fibrillation 1 month ago who underwent bedside cardioversion in the ED 1 week ago who presents with palpitations since possibly 530 this morning. Patient states he awoke to take care of his baby and noticed palpitations though he is unsure of the exact timeframe. He admits to epigastric pain which she has had with previous A. fib episodes but denies any chest pain or shortness of breath. Patient initially presented on February 17 with palpitations, including 2- troponins, negative CT chest, have been given IV diltiazem in the ED and was rate controlled and asymptomatic and was discharged home. He then had an echocardiogram on 03/06 which was essentially normal. Patient returned on 03/07 with palpitations and was found to be in rapid A. fib and had successful bedside ED cardioversion and was found to be in sinus rhythm. ED physician had discussed with cardiology Dr. Hercules at that time and had recommended anticoagulation Eliquis 5 mg twice daily of which patient has been taking. It was found that patient's atrial fibrillation on 03/07 may have possibly been due to alcohol the night before. Patient currently denies any alcohol use since then. He denies any other new medications. His heart rate on initial presentation today was noted to be 150s in A. fib. He was given 30 mg Cardizem IV and 60 mg Cardizem p.o. Heart rate continues to range between 90s and 120s. Patient still complaining of some epigastric pain but states overall his palpitations feel improved. He denies any chest pain or shortness of breath. His first troponin was negative. Plan per Dr. Calderon was for second troponin at 1045, discussion with [facility] EPS for further recommendations and likely follow-up as patient does not have follow-up with cardiology here until June. 0935 --discussed with [facility] cardiology -recommends increasing diltiazem to 240 mg daily and adding metoprolol. Recommends to give 25 mg metoprolol tartrate now and if pt tolerates, can send home with metoprolol succinate 50mg daily. Agrees with plan for no cardioversion as patient will likely not benefit. Recommend assessing for possible sleep apnea as this can precipitate atrial fibrillation, and if risk factors, recommends referral for sleep study. For referral to [facility] cardiology, recommends to call cardiology clinic through main number. 1130 --second troponin negative. Heart rate 90s to low 100s. Blood pressure has been stable. Patient denies any complaints of chest pain or shortness of breath. Patient feels good to go home. Will send home with prescription for 240 mg diltiazem and 50 mg metoprolol succinate once daily each. Patient instructed to continue his Eliquis 5 mg twice daily. Patient instructed to call [facility] cardiology tomorrow to schedule follow-up appointment. Patient states he has a sleep study ordered through his primary care doctor. He was instructed to follow-up regarding this. Will place patient on care management list to help arrange for a follow-up with [facility] cardiology. High patient was instructed to return here immediately with any worsening or new concerning symptoms. HPI <Bubba Calderon MD - Last Filed: 03/21/18 20:29> General Mode of arrival: ambulatory. Date/Time Provider Initiated Documentation: 03/18/18 06:19. Limitations to Documentation: no limitations. Information obtained by: patient and old records reviewed. HPI Narrative: Patient presents to ED with complaints of palpitations and epigastric discomfort. This is the third visit for same since end of January. On his last visit he was cardioverted back into sinus rhythm. He has avoided alcohol. He has cut back dramatically on caffeine intake. This morning around 430 when he got up with the baby he noticed that he was having palpitations, fast heart rate, epigastric discomfort. He waited for a little bit to see if it would slow down or stop on its own. It did not. He did take his Cardizem long-acting last night. He is on Eliquis. He presents this morning due to the palpitations. Related Data Home Medications Medication Instructions Recorded Confirmed apixaban [Eliquis] 5 mg PO BID #60 tab 03/07/18 03/18/18 diclofenac 1 % topical gel 2 gm TP QID #100 gm 03/09/18 03/18/18 diltiazem HCl 240 mg PO DAILY #30 cap 03/18/18 metoprolol succinate 50 mg PO DAILY #30 tab 03/18/18 Previous Rx's Medication Instructions Recorded apixaban [Eliquis] 5 mg PO BID #60 tab 03/07/18 diclofenac 1 % topical gel 2 gm TP QID #100 gm 03/09/18 diltiazem HCl 240 mg PO DAILY #30 cap 03/18/18 metoprolol succinate 50 mg PO DAILY #30 tab 03/18/18 Allergies Allergy/AdvReac Type Severity Reaction Status Date / Time No Known Allergies Allergy Unverified 03/18/18 06:26 General Stated Complaint: Palpitatns STEFFANY: 2 Review of Systems <Bubba Calderon MD - Last Filed: 03/21/18 20:29> Constitutional Denies chills, Denies fever(s), Denies headache(s) and Denies weakness Eyes Denies other visual disturbances and Denies eye pain ENT Denies vertigo, Denies dizziness, Denies otalgia, Denies headache(s), Denies nasal congestion and Denies sore throat Cardiovascular Denies chest pain, Denies diaphoresis, Denies syncope, Reports rapid heart rate, Denies pedal edema, Denies edema, Denies lightheadedness, Reports palpitations, Denies dyspnea and Denies dyspnea on exertion Respiratory Denies cough, Denies dyspnea and Denies dyspnea on exertion Gastrointestinal Reports abdominal pain (epigastric), Denies nausea and Denies vomiting Genitourinary Denies hematuria, Denies dysuria and Denies flank pain Musculoskeletal Denies abnormal gait, Denies back pain, Denies myalgias and Denies arthralgias Integumentary/Breasts Denies erythema and Denies rash Neurologic Denies abnormal speech, Denies abnormal gait, Denies vertigo, Denies dizziness, Denies syncope, Denies headache(s) and Denies weakness Endocrine Reports palpitations Exam <Bubba Calderon MD - Last Filed: 03/21/18 20:29> Const General: cooperative, comfortable and no acute distress Orientation: alert and oriented x3 HENMT Head: normocephalic and atraumatic Eyes Pupils: PERRL EOM: EOM intact bilaterally Neck Neck: normal visual inspection, trachea midline and supple Resp Effort & Inspection: normal respiratory effort Auscultation: clear to auscultation bilaterally Cardio Rate: tachycardic Rhythm: abnormal rhythm irregularly irregular Heart Sounds: S1 normal and S2 normal Pulses: radial pulses present GI Inspection: non-distended Palpation: soft Skin General skin exam: no rashes or lesions noted Neuro General: alert, oriented x3, no focal motor deficits and CN's II-XI intact bilaterally Speech: speech normal Gait: normal gait Sensory Exam: no sensory deficits noted Psych Mental Status: mental status grossly normal Speech and Movement: speech and movement normal Mood: congruent mood Affect: normal affect Course <Bubba Calderon MD - Last Filed: 03/21/18 20:29> Vital Signs Temperature 96.8 F L 03/18/18 06:20 Pulse 159 H 03/18/18 06:20 Respiratory Rate 16 03/18/18 06:20 Blood Pressure 128/99 H 03/18/18 06:20 Pulse Oximetry 96 03/18/18 06:20 Temperature 96.8 F L 03/18/18 06:20 Temperature Source Temporal Artery Scan 03/18/18 06:20 Pulse 159 H 03/18/18 06:20 Respiratory Rate 16 03/18/18 06:20 Respiratory Effort Non-Labored 03/18/18 06:23 Blood Pressure 128/99 H 03/18/18 06:20 Blood Pressure Position Sitting 03/18/18 06:20 Pulse Oximetry 96 03/18/18 06:20 Oxygen Delivery Method Room Air 03/18/18 06:20 Oxygen Flow Rate 0 03/18/18 06:20 Pain Level 0 03/18/18 06:26 Sign Out <Bubba Calderon MD - Last Filed: 03/21/18 20:29> Sign Out Data: Sign Out Comment: pending second troponin and observation for rate control Last updated by Bubba Calderon MD at 03/18/18 08:04
[2018-03-18] MEDS: Normal Saline Flush 10 ML SYR IVP (06:52)
[2018-03-18] MEDS: Normal Saline 1,000 ML 150 ML IV (06:52)
[2018-03-18 07:01] LABS: BUN 20 mg/dL (7-18); CREATININE 0.78 mg/dL (0.70-1.30); Calcium 8.7 mg/dL (8.5-10.1); Chloride 101 mmol/L (98-107); Glucose 104 mg/dL (70-100); Potassium 3.9 mmol/L (3.5-5.1); Sodium 138 mmol/L (136-145); Troponin I 0.02 ng/mL (0.00-0.06)
--- NOTE | 2018-03-18 07:10 | NUR.NOTE ---
Nursing Note: pt care handoff to MMQ RN.
[2018-03-18] MEDS: Metoprolol 25 MG TAB PO (10:09)
[2018-03-18 11:14] LABS: Troponin I < 0.02 ng/mL (0.00-0.06)
== END 2018-03-18 12:02 | disposition home or self-care (01) ==
PROVIDERS: Emergency Medicine; Emergency Provider Physician Assistant; PCP Family Medicine
DX: I48.91 Unspecified atrial fibrillation (principal); R10.13 Epigastric pain; Z79.01 Long term (current) use of anticoagulants
CPT/HCPCS: 36415; 80048; 93005; 96361; 96374; 99284; 83735; 84484; 93010

== ENCOUNTER 2018-03-29 00:54 | Outpatient (CLI) | payer BC, SELFPAY ==
--- NOTE | 2018-03-29 12:30 | MERGEMPI_ITS ---
*[facility]* *[facility]* [address] [place] [address] Myocardial Perfusion Imaging - SPECT Regadenoson Date of study: 03/29/2018 *PATIENT PRESENTATION* Height: 190.5cm (75in) Blood Pressure: Weight: 120.5kg (265lb) BSA: 2.56m^2 Referring physician: Clement Reese MD Ordering physician: Roe Mooney Impressions: - Normal perfusion by Tc99m Sestamibi Imaging. - Abnormal contraction consistent with cardiomyopathy. Summary: 1. Myocardial perfusion imaging: No myocardial perfusion defects noted. 2. The calculated left ventricular ejection fraction after stress: 41%. LV global systolic function is mildly reduced. Diffuse left ventricular regional motion abnormalities. Recommendations: Consider getting echo to correlate LV function. Indication: R07.9. History: REASON FOR VISIT: THIS PATIENT WAS DIAGNOSED WITH NEW ONSET ATRIAL FIBRILLATION 1 MONTH AGO. HE WAS SUCCESSFULLY CARDIOVERTED BUT WENT BACK INTO ATRIAL FIB AFTER ABOUT ONE WEEK. PT DESCRIBES INTERMITTENT PALPITATIONS, FAST HEART RATE AND EPIGASTRIC DISCOMFORT. PT REPORTS HE FELT HE WAS IN ATRIAL FIBRILLATION THIS MORNING. CURRENTLY PT IS IN A NORMAL SINUS TAYLOR RHYTHM. HE IS TAKING METOPROLOL, DILTIAZEM AND APIXABAN (SEE MED LIST). Risk factors: FORMER SMOKER. QUIT 4 YEARS AGO. Family history of coronary artery disease. Cholesterol: 180mg/dl. HDL: 32mg/dl. LDL: 103mg/dl. Triglycerides: 248mg/dl. ALLERGIES: NO KNOWN DRUG ALLERGIES. MEDICATIONS: METOPROLOL SUCCINATE 100 MG DAILY. DILTIAZEM HCL 240 MG DAILY. APIXABAN 5 MG BID. Imaging Technique: Protocol: Kimbiaadenoson. Acquisition: Gated SPECT; 1 day - rest/stress. The patient was imaged in the supine position. Attenuation correction used. Isotope administration: - Rest. Tc[99m]-sestamibi. Dose: 10.1mCi. Injection time: 12:40 PM. Injection to stress time: 00:45. - Stress. Tc[99m]-sestamibi. Dose: 31.8mCi. Injection time: 02:40 PM. 1-2 min before end of exercise Baseline ECG: SINUS BRADYCARDIA. HR 58 BPM. Stress protocol: +--------+--+ + + !Stage !HR!BP (mmHg) !Comments ! +--------+--+ + + !Baseline!58!118/78 (91)! ! +--------+--+ + + !1 min !89!134/78 (97)!Inject Regadenoson.! +--------+--+ + + !3 min !81!132/62 (85)! ! +--------+--+ + + !6 min !69!116/58 (77)! ! +--------+--+ + + * Stress results: The rate-pressure product for the peak heart rate and blood pressure was 42981kx Hg/min. Stress ECG: STRESS TEST ENDED IN 6 MINUTES & 7 SECONDS. PT HAD NO SIGNIFICANT SIDE EFFECTS FROM LEXISCAN INJECTION. NORMAL HEART RATE AND BLOOD PRESSURE RESPONSE TO LEXISCAN INJECTION. NO ECTOPY. NO ANGINA. NO SIGNIFICANT ST SEGMENT CHANGES. Myocardial perfusion: Imaging information: gated. Left ventricular size is normal. No myocardial perfusion defects noted. Ventricular Function (Wall Motion): The calculated left ventricular ejection fraction after stress: 41%. LV global systolic function is mildly reduced. Diffuse left ventricular regional motion abnormalities. Study data: Kori Oswald MD supervised and was readily available during the procedure. This study was interpreted by [facility]. Study status: Routine. Consent: The risks, benefits, and alternatives to the procedure were explained to the patient and informed consent was obtained. Procedure: Initial setup. A baseline ECG was recorded. Surface ECG leads and manual cuff blood pressure measurements were monitored. Heart sounds: Normal. Lung sounds: Normal. Regadenoson stress test. Stress testing was performed, with regadenoson by intravenous bolus, for a total dose of 0.4mgover 10.00sec, followed by a 5ml saline flush. The infusion was terminated due to per protocol. Study completion: All catheters inserted during the procedure were removed. The patient tolerated the procedure well and was discharged from the lab. Discharge: The patient left the laboratory in stable condition. Birthdate: Patient birthdate: 1975. Sex: Gender: male. Study date: Study date: 03/29/2018. Study time: 12:30 PM. Signature Documentation: - The imaging portion of this study was interpreted by Nuclear Field Map Technician Kori Oswald MD. - The imaging portion of this study was interpreted by Nuclear Radiologist Ajay Baltazar MD. - The Stress ECG portion of this study was interpreted by Kori Oswald MD. Electronically signed by Kori Oswald 03/29/2018 15:45
[2018-03-29] MEDS: Regadenoson 0.4 MG/5 ML SYR IVP (15:11)
== END 2018-03-29 01:14 ==
PROVIDERS: PCP Family Medicine; Visit Provider Family Medicine
DX: R07.9 Chest pain, unspecified (principal); I48.91 Unspecified atrial fibrillation; R00.2 Palpitations; I42.9 Cardiomyopathy, unspecified; Z87.891 Personal history of nicotine dependence; Z82.49 Family history of ischemic heart disease and other diseases of the circulatory system
CPT/HCPCS: 78452; 93017; J2785

== ENCOUNTER 2018-10-19 02:05 | Outpatient (CLI) | payer MEDICAID, SELFPAY ==
[2018-10-19 11:20] LABS: Abs Immature Grans 0.01 k/cumm (0.0-0.09); Absolute Basophil Count 0.03 k/cumm (0.0-0.2); Absolute Eosinophil Count 0.17 k/cumm (0.0-0.7); Absolute Lymphocyte Count 1.51 k/cumm (1.2-3.4); Absolute Monocyte Count 0.48 k/cumm (0.11-0.7); Absolute Neutrophil Count 2.49 k/cumm (1.2-6.7); Basophils % 0.6; Eosinophils % 3.6; HCT 41.5 % (40.0-50.0); HGB 13.8 g/dL (13.5-17.5); Immature Grans % 0.2; Lymphocytes % 32.2; Mean Corp. HGB Concentration 33.3 g/dL (32.0-36.0); Mean Corpuscular Hemoglobin 29.9 pg (27.0-33.0); Mean Corpuscular Volume 89.8 fL (80-95); Mean Platelet Volume 9.6 fL (8.0-11.0); Monocytes % 10.2; Neutrophils % 53.2; Platelet Count 212 x1000/uL (130-400); RBC 4.62 m/cumm (4.50-6.00); White Blood Cell Count 4.69 k/cumm (4.4-10.8)
== END 2018-10-19 02:25 ==
PROVIDERS: PCP Family Medicine; Visit Provider Family Medicine
DX: K92.1 Melena (principal)
CPT/HCPCS: 36415; 85025

== ENCOUNTER 2019-10-29 10:16 | Outpatient (CLI) | payer MEDICAID, SELFPAY ==
[2019-10-30 01:54] LABS: COVID-19 RT-PCR UVMMC Result Negative (Negative)
== END 2019-10-29 10:36 ==
PROVIDERS: PCP Family Medicine; Visit Provider Family Medicine
DX: R05 Cough (principal); Z11.59 Encounter for screening for other viral diseases
CPT/HCPCS: U0003

== ENCOUNTER 2020-03-18 09:24 | Outpatient (CLI) | payer MEDICAID, SELFPAY ==
[2020-03-20 23:56] LABS: Patient Race White; SARS-CoV-2 RNA Undetected (Undetected); SARS-CoV-2 Specimen Source Nasal
== END 2020-03-18 09:44 ==
PROVIDERS: PCP Family Medicine; Visit Provider Family Medicine
DX: Z11.59 Encounter for screening for other viral diseases (principal)
CPT/HCPCS: U0003

== ENCOUNTER 2020-08-04 02:54 | Outpatient (CLI) | payer MEDICAID, SELFPAY ==
[2020-08-05 18:43] LABS: COVID-19 RT-PCR UVMMC Result Negative (Negative)
== END 2020-08-04 02:55 | disposition home or self-care (01) ==
LOC: LBO 02:54
PROVIDERS: PCP Family Medicine; Visit Provider Pediatrics
DX: Z20.822 Contact with and (suspected) exposure to COVID-19 (principal)
CPT/HCPCS: U0003

== ENCOUNTER 2020-08-07 02:45 | Outpatient (CLI) | payer MEDICAID, SELFPAY ==
[2020-08-08 13:43] LABS: COVID-19 RT-PCR UVMMC Result Negative (Negative)
== END 2020-08-07 02:46 | disposition home or self-care (01) ==
LOC: LBO 02:45
PROVIDERS: PCP Family Medicine; Visit Provider Family Medicine
DX: Z20.822 Contact with and (suspected) exposure to COVID-19 (principal)
CPT/HCPCS: U0003

== ENCOUNTER 2020-11-25 02:17 | Outpatient (CLI) | payer MEDICAID, SELFPAY ==
--- NOTE | 2020-11-25 06:30 | DI.RAD_ITS ---
Exam(s) XR ANKLE RT COMPLETE EXAM: XR ANKLE RT COMPLETE CLINICAL HISTORY: Old ankle fracture, increased pain, reduced ROM,M84.471S. TECHNIQUE: 2D digital imaging was performed. COMPARISON: No exams were available for comparison FINDINGS: There are 3 screws in the distal metaphysis of the right tibia and there appears to be a healed fract ure site above this level. There is osseous union across the interosseous membrane between the dista l tibia and fibula. There are significant degenerative changes in the ankle tibiotalar joint includi ng a somewhat undulating subarticular lucency which extends from the medial to the lateral aspect of talar dome as seen on the frontal view, this of questionable significance. Small corticated calcific density is seen anterior to the ankle joint which is either loose intra-articular body is in the ant erior recess or less likely capsular calcification. Two small calcific densities as also seen dorsa to the distal talus. Subtalar joint appears unremarkable. There is a 3 millimeter inferior calcanea l spur evident. IMPRESSION: DATA REPOSITORY: RADIATION DOSE DELIVERED:
== END 2020-11-25 02:37 ==
PROVIDERS: PCP Family Medicine; Visit Provider Family Medicine
DX: M25.571 Pain in right ankle and joints of right foot (principal); M84.471 Pathological fracture, right ankle
CPT/HCPCS: 73610

== ENCOUNTER 2021-02-16 02:38 | Outpatient (CLI) | payer MEDICAID, SELFPAY ==
[2021-02-16 16:03] LABS: ALT 35 U/L (16-63); AST 20 U/L (15-37); Albumin 4.2 g/dL (3.4-5.0); Alkaline Phosphatase 84 U/L (46-116); Anion Gap 8.7 mmol/L (3-11); BUN 20 mg/dL (7-18); Bilirubin, Total 0.4 mg/dL (0.2-1.0); CO2 28.3 mmol/L (21.0-32.0); CREATININE 1.2 mg/dL (0.70-1.30); Calcium 9.1 mg/dL (8.5-10.1); Chloride 103 mmol/L (98-107); Cholesterol 224 mg/dL (<200); Glucose 101 mg/dL (74-106); HDL Cholesterol 31 mg/dL (40-60); Sodium 140 mmol/L (136-145); Total Protein 7.5 g/dL (6.4-8.2); Triglyceride 644 mg/dL (<150)
[2021-02-16 16:21] LABS: LDL CHOLESTEROL 102 mg/dL (<100)
[2021-02-17 10:38] LABS: Hepatitis C Ab w Rflx HCV PCR Negative (Negative)
[2021-02-17 12:03] LABS: HIV-1/2 Ag & Ab Screen Negative (Negative)
== END 2021-02-16 02:39 | disposition home or self-care (01) ==
LOC: LBO 02:38
PROVIDERS: PCP Family Medicine; Visit Provider Family Medicine
DX: E78.1 Pure hyperglyceridemia (principal); I48.91 Unspecified atrial fibrillation; Z11.4 Encounter for screening for human immunodeficiency virus [HIV]; Z11.59 Encounter for screening for other viral diseases; Z11.3 Encounter for screening for infections with a predominantly sexual mode of transmission
CPT/HCPCS: 36415; 80053; 80061; 83721; 86803; 87389

== ENCOUNTER 2021-05-04 15:22 | Outpatient (CLI) | payer MEDICAID, SELFPAY ==
--- NOTE | 2021-05-04 15:15 | RT.EKG_ITS ---
APPROVED REPORT Exam: Resting ECG Reason for Exam: afib Patient Location: O HR:129 bpm ECG Measurements Heart Rate 129 AXIS DE [id number] P [id number] QRSd 102 QRS -76 QT 331 T 31 QTc 485 Conclusion Atrial fibrillation...? atrial activity LAD, consider left anterior fascicular block...axis(240,-40), S>R II III aVF
== END 2021-05-04 15:23 | disposition home or self-care (01) ==
LOC: DI.KIM 15:23
PROVIDERS: PCP Family Medicine; Visit Provider Nurse Practitioner
DX: I48.91 Unspecified atrial fibrillation (principal); I44.4 Left anterior fascicular block
CPT/HCPCS: 93010

== ENCOUNTER 2021-09-09 09:25 | Outpatient (CLI) | payer MEDICAID, SELFPAY ==
[2021-09-09 10:45] VITALS: BP 123/75; PULSE 81; RESP 18; TEMP 36.2; O2SAT 98
[2021-09-09 11:35] VITALS: BP 126/63; PULSE 68; RESP 20; TEMP 36.3; O2SAT 94
== END 2021-09-09 09:26 | disposition home or self-care (01) ==
LOC: INF 09:28
PROVIDERS: PCP Family Medicine; Visit Provider Family Medicine
DX: U07.1 COVID-19 (principal)
CPT/HCPCS: 96374

== ENCOUNTER 2022-03-02 08:45 | Outpatient (CLI) | payer MEDICAID, SELFPAY ==
--- NOTE | 2022-03-02 08:45 | RT.EKG_ITS ---
APPROVED REPORT Exam: Resting ECG Reason for Exam: s/p ablation of atrial fibrillation Patient Location: O HR:60 bpm ECG Measurements Heart Rate 60 AXIS NH 154 P 10 QRSd 98 QRS -43 QT 398 T 26 QTc 398 Conclusion Sinus rhythm...normal P axis, V-rate 50- 99 Left axis deviation...QRS axis (-30,-90)
== END 2022-03-02 08:46 | disposition home or self-care (01) ==
LOC: DI.CARD 09:21
PROVIDERS: PCP Family Medicine; Visit Provider Internal Medicine Cardiovascular Disease
DX: Z86.79 Personal history of other diseases of the circulatory system (principal); Z98.890 Other specified postprocedural states
CPT/HCPCS: 93010

== ENCOUNTER 2022-05-05 02:33 | Outpatient (CLI) | payer MEDICAID, SELFPAY ==
[2022-05-05 09:08] LABS: Calculated LDL 130 mg/dL (<100); Cholesterol 226 mg/dL (<200); HDL Cholesterol 40 mg/dL (40-60); Triglyceride 282 mg/dL (<150)
== END 2022-05-05 02:34 | disposition home or self-care (01) ==
LOC: LBO 02:33
PROVIDERS: PCP Family Medicine; Visit Provider Family Medicine
DX: E78.1 Pure hyperglyceridemia (principal); E78.5 Hyperlipidemia, unspecified
CPT/HCPCS: 36415; 80061

== ENCOUNTER 2022-06-06 01:06 | Outpatient (CLI) | payer MEDICAID, SELFPAY ==
--- NOTE | 2022-06-06 13:59 | DI.US_ITS ---
APPROVED REPORT EXAM: Comprehensive 2D, Doppler, and color-flow Echocardiogram Patient Location: Out-Patient Otm Consultant: Lili Kirby RDCS (AE) Indications: Evaluate mild LV systolic dysfunction in sinus rhythm, atrial fibrillation Other Information Study Quality: Adequate. Technically limited study due to body habitus. Conclusion Normal left ventricular wall thickness and chamber size. Estimated ejection fraction is 60%. Wall m otion is normal Normal right ventricular size and systolic function Left atrium is mildly dilated. Right atrial size is normal There is no structural valvular disease Trace mitral and tricuspid regurgitation Estimated right ventricular systolic pressure is 25 mmHg Wall motion Left Ventricle The left ventricle is normal size. The left ventricular systolic function is normal. The left ventric ular ejection fraction is within the normal range. There is normal left ventricular wall thickness. T here is normal LV segmental wall motion. There is no ventricular septal defect visualized. LVEF is 60 %. Right Ventricle Right ventricle is grossly normal in size. Right ventricular systolic function is grossly normal. The RVSP is 24.6 mmHg. Atria Left atrium is mildly dilated. The right atrium size is normal. The interatrial septum is intact with no evidence for an atrial septal defect. Aortic Valve The aortic valve is normal in structure. Aortic valve is trileaflet. There is no aortic valvular sten osis. No aortic regurgitation is present. Mitral Valve The mitral valve is normal in structure. No evidence of mitral valve stenosis. Trace mitral regurgita tion. Tricuspid Valve The tricuspid valve is normal in structure. There is no tricuspid valve stenosis. Trace tricuspid reg urgitation. Pulmonic Valve The pulmonary valve is normal in structure. There is no pulmonic valvular stenosis. Mild pulmonic re gurgitation. Great Vessels The aortic root is normal in size. The ascending aorta is normal in size. IVC is normal in size and c ollapses >50% with inspiration. Pericardium There is no pericardial effusion. 2D Dimensions IVSD d PLAX 1.16 cm M: 0.6-1.2 LV Vol A2C d MOD 152.9 mL LVPW d PLAX 1.16 cm M: 0.6 - 1.2 LV Vol A4C d MOD 187.7 mL LVID d PLAX 5.80 cm M: 4.2 - 5.8 LA vol/ BSA A2C s A-L 34.6 mL/m2 LVDs 3.90 cm M: 2.5 - 4.0 LA vol/ BSA A4C s A-L 45.2 mL/m2 Ao Root d 3.59 cm M: 3.1 - 3.7 LA Vol/ BSA Biplane s A-L 43.9 mL/m2 RA Area A4C 18.80 cm2 LA Area A4C s MOD 30.66 cm2 RA Vol/ BSA A4C s A-L 22.3 mL/m2 LA Area A2C s MOD 24.17 cm2 Ao Asc Diam d 3.26 cm M: 2.6 - 3.4 LV EF A4C MOD 60.4 % LV EF Teichholz 59.8 % LV EF A2C MOD 59.0 % LVEF (Belle's) 60.80 % M: 52 - 72 LV EF Biplane MOD 60.8 % LV Volume 122.88 mL M: 62 - 150 SV 106.35 mL LV Volume Index 49.74 mL/m2 M: 34 - 74 SV Index 43.08 mL/m2 LV Vol Biplane MOD 174.9 mL FS 32.25 % M-Mode TAPSE 2.01 cm (M/F) >1.7 LV Diastology MV E' medial 0.101 (>0.07 m/s) E/A Ratio 1.3 LV E/e MED 6.45 (<14) MV E Vmax 0.66 (0.4-1.3 m/s) MV E' lateral 0.163 (>0.1 m/s) MV A Vmax 0.50 (0.4-1.3 m/s) LV E/e LAT 4.00 (<14) MV E/A Ratio 1.21 MV E/E' medial 6.48 MV E/E' lateral 4.02 Aortic Valve LVOT Area 3.35 cm2 AoV Area Vmax 2.69 cm2 LVOT Vmax 1.03 m/s AoV Area/ BSA (Vmax) 1.09 cm2/m2 LVOT Mean Jameel. 0.65 m/s JAMES Mean Jameel. 2.39 cm2 LVOT Peak Grad 4.3 mmHg JAMES Mean Jameel. Index 0.97 cm2/m2 LVOT Mean Grad 2.0 mmHg LVOT VTI 0.236 m LVOT Diam s 2.05 cm AoV Vmax 1.29 m/s Velocity Ratio 0.80 AoV Mean Jameel. 0.91 m/s AoV Peak Grad 6.6 mmHg LVOT SV 79.03 mL AoV Mean Grad 3.6 mmHg AoV VTI 0.280 m AoV Area VTI 2.82 cm2 AoV Area/ BSA (VTI) 1.14 cm/m2 Mitral Valve MV DT 211 (160-240 msec) MV PHT 61 msec MV Area PHT 3.59 cm2 MV VTI 0.257 m MV Area VTI 3.08 (4.0-6.0 cm2) Pulmonary Valve PV Vmax 0.99 (0.5-1.5 m/s) RVOT Peak Gr. 2.89 mmHg PV Peak Grad 3.9 mmHg RVOT Mean Gr. 1.40 mmHg PV Mean Grad 2.1 mmHg RVOT VTI 0.197 m PV VTI 0.210 m RVOT Vmax 0.85 m/s Tricuspid Valve TR Peak Grad 21.5 mmHg TR Vmax 2.32 m/s RA Pressure 3.00 mmHg RVSP (TR) 24.6 mmHg
== END 2022-06-06 01:26 ==
LOC: DI 01:06
PROVIDERS: PCP Family Medicine; Visit Provider Internal Medicine Cardiovascular Disease
DX: I48.91 Unspecified atrial fibrillation (principal)
CPT/HCPCS: 93306

== ENCOUNTER 2022-08-31 08:28 | Outpatient (CLI) | payer MEDICAID, SELFPAY ==
--- NOTE | 2022-08-31 08:15 | RT.EKG_ITS ---
APPROVED REPORT Exam: Resting ECG Reason for Exam: s/p ablation for afib Patient Location: O HR:63 bpm ECG Measurements Heart Rate 63 AXIS MD 154 P 1 QRSd 107 QRS -30 QT 381 T 30 QTc 390 Conclusion Sinus rhythm...normal P axis, V-rate 50- 99 Left axis deviation...QRS axis (-30,-90) Abnormal R wave progression possibly due to lead placement Baseline wander in lead(s) V3
== END 2022-08-31 08:29 | disposition home or self-care (01) ==
LOC: DI.CARD 08:29
PROVIDERS: PCP Family Medicine; Visit Provider Internal Medicine Cardiovascular Disease
DX: Z86.79 Personal history of other diseases of the circulatory system (principal); Z98.890 Other specified postprocedural states
CPT/HCPCS: 93010

== ENCOUNTER 2024-08-08 02:31 | Outpatient (CLI) | payer BC, SELFPAY ==
[2024-08-08 12:42] LABS: ESR 18 mm/hr (0-15)
[2024-08-08 12:44] LABS: Abs Immature Grans 0.04 10^3/uL (0.0-0.06); Absolute Basophil Count 0.05 10^3/uL (0.0-0.2); Absolute Eosinophil Count 0.21 10^3/uL (0.0-0.7); Absolute Lymphocyte Count 2.09 10^3/uL (1.2-3.4); Absolute Monocyte Count 0.42 10^3/uL (0.1-0.8); Absolute Neutrophil Count 3.55 10^3/uL (1.2-6.7); Basophils % 0.8 %; Eosinophils % 3.3 %; HCT 40.8 % (40.0-50.0); HGB 13.3 g/dL (13.5-17.5); Immature Grans % 0.6 %; Lymphocytes % 32.9 %; MCH 28.8 pg (27.0-33.0); MCHC 32.6 % (32.0-36.0); MCV 88 fL (80-95); MPV 8.7 fL (8.0-11.0); Monocytes % 6.6 %; Neutrophils % 55.8 %; Platelet Count 352 10^3/uL (130-400); RBC 4.62 10^6/uL (4.36-5.78); RDW 13.2 % (11.8-14.1); RDW-SD 42.9 fL; WBC 6.36 10^3/uL (4.4-10.8)
[2024-08-08 13:40] LABS: C-Reactive Protein < 0.50 mg/dL (<or=0.5)
== END 2024-08-08 02:32 | disposition home or self-care (01) ==
LOC: LBO 02:32
PROVIDERS: PCP Family Medicine; Visit Provider Physician Assistant
DX: M19.071 Primary osteoarthritis, right ankle and foot (principal)
CPT/HCPCS: 36415; 85652; 85025; 86140

== ENCOUNTER 2024-08-16 11:16 | Outpatient (REF) | payer BC, SELFPAY | END 2024-08-16 11:17 | disposition home or self-care (01) | LOC: LBN 11:16 | PROVIDERS: PCP Family Medicine; Referring Provider Physical Therapy Assistant; Visit Provider Physical Therapy Assistant | DX: Z51.89 Encounter for other specified aftercare (principal) | CPT/HCPCS: 87070; 87075; 87205 ==

== ENCOUNTER 2025-02-25 11:38 | Outpatient (RCR) | payer BC, SELFPAY ==
[2025-02-25] MEDS: ceFAZolin 2 GM/50 ML BAG IVPB (13:50)
[2025-02-25 14:21] LABS: Abs Immature Grans 0.02 10^3/uL (0.0-0.06); HCT 39.5 % (40.0-50.0); HGB 13.0 g/dL (13.5-17.5); Immature Grans % 0.3 %; MCH 28.0 pg (27.0-33.0); MCHC 32.9 % (32.0-36.0); MCV 85 fL (80-95); MPV 8.8 fL (8.0-11.0); Platelet Count 274 10^3/uL (130-400); RBC 4.64 10^6/uL (4.36-5.78); RDW 13.5 % (11.8-14.1); RDW-SD 41.8 fL; WBC 6.12 10^3/uL (4.4-10.8)
--- NOTE | 2025-02-25 14:30 | DI.RAD_ITS ---
Exam(s) XR PORTABLE CHEST AP POST LINE EXAM: XR PORTABLE CHEST AP POST LINE CLINICAL HISTORY: PICC LINE PLACEMENT TECHNIQUE: 2D digital imaging was performed of the chest. One image was obtained. An AP view was obtained. COMPARISON: No exams were available for comparison FINDINGS: There is a right PICC line in place. The tip of the catheter is in good position at the junction of the superior vena cava and right atrium. MEDIASTINUM: Normal. HEART: Normal. PULMONARY VASCULATURE: Normal. LUNGS: Portions of the lung bases are not included on this examination. The visualized lungs are clear. PLEURAL SPACE: No pleural effusion or pneumothorax. BONE:Within normal limits for the patient's age. OTHER FINDINGS:Normal. IMPRESSION: 1. Within the limits of the examination, no acute pulmonary process is present. 2. The tip of the right PICC line is in good position at the junction of the superior vena cava and right atrium. DATA REPOSITORY: RADIATION DOSE DELIVERED:
[2025-02-25 14:36] LABS: ALT 37 U/L (16-63); AST 14 U/L (15-37); Albumin 4.2 g/dL (3.4-5.0); Alkaline Phosphatase 103 U/L (46-116); Anion Gap 11.0 mmol/L (3-11); BUN 17 mg/dL (7-18); Bilirubin, Total 0.4 mg/dL (0.2-1.0); CO2 26.0 mmol/L (21.0-32.0); Calcium 9.4 mg/dL (8.5-10.1); Chloride 103 mmol/L (98-107); Glucose 101 mg/dL (74-106); Potassium 4.1 mmol/L (3.5-5.1); Sodium 140 mmol/L (136-145); Total Protein 8.1 g/dL (6.4-8.2)
[2025-02-25] MEDS: Normal Saline Flush 10 ML SYR IVP (15:02)
[2025-02-25 17:03] LABS: C-Reactive Protein < 0.50 mg/dL (<or=0.5)
== END 2025-02-28 23:59 | disposition home or self-care (01) ==
LOC: INF 11:38
PROVIDERS: PCP Family Medicine; Visit Provider Internal Medicine Infectious Disease
DX: T84.59XA Infection and inflammatory reaction due to other internal joint prosthesis, initial encounter (principal)
CPT/HCPCS: 36415; 36569; 36573; 71045; 80053; 96365; 85025; 86140; J0690

== ENCOUNTER 2025-03-03 09:36 | Outpatient (REF) | payer BC, SELFPAY ==
[2025-03-03 16:11] LABS: Abs Immature Grans 0.01 10^3/uL (0.0-0.06); HCT 39.0 % (40.0-50.0); HGB 12.7 g/dL (13.5-17.5); Immature Grans % 0.2 %; MCH 28.3 pg (27.0-33.0); MCHC 32.6 % (32.0-36.0); MCV 87 fL (80-95); MPV 9.5 fL (8.0-11.0); Platelet Count 290 10^3/uL (130-400); RBC 4.48 10^6/uL (4.36-5.78); RDW 13.7 % (11.8-14.1); RDW-SD 43.4 fL; WBC 6.00 10^3/uL (4.4-10.8)
[2025-03-03 16:35] LABS: ALT 26 U/L (16-63); AST 16 U/L (15-37); Albumin 4.0 g/dL (3.4-5.0); Alkaline Phosphatase 115 U/L (46-116); Anion Gap 10.6 mmol/L (3-11); BUN 15 mg/dL (7-18); Bilirubin, Total 0.3 mg/dL (0.2-1.0); C-Reactive Protein 1.28 mg/dL (<or=0.5); CO2 27.4 mmol/L (21.0-32.0); Calcium 9.2 mg/dL (8.5-10.1); Chloride 100 mmol/L (98-107); Glucose 88 mg/dL (74-106); Potassium 4.4 mmol/L (3.5-5.1); Sodium 138 mmol/L (136-145); Total Protein 7.4 g/dL (6.4-8.2)
== END 2025-03-03 09:37 | disposition home or self-care (01) ==
LOC: LBN 09:36
PROVIDERS: PCP Family Medicine; Visit Provider Internal Medicine Infectious Disease
DX: T84.59XA Infection and inflammatory reaction due to other internal joint prosthesis, initial encounter (principal); Z96.661 Presence of right artificial ankle joint
CPT/HCPCS: 80053; 85025; 86140

== ENCOUNTER 2025-03-10 13:39 | Outpatient (REF) | payer BC, SELFPAY ==
[2025-03-10 10:49] LABS: Abs Immature Grans 0.01 10^3/uL (0.0-0.06); HCT 38.8 % (40.0-50.0); HGB 12.9 g/dL (13.5-17.5); Immature Grans % 0.2 %; MCH 28.4 pg (27.0-33.0); MCHC 33.2 % (32.0-36.0); MCV 85 fL (80-95); MPV 9.3 fL (8.0-11.0); Platelet Count 282 10^3/uL (130-400); RBC 4.55 10^6/uL (4.36-5.78); RDW 13.4 % (11.8-14.1); RDW-SD 41.7 fL; WBC 4.95 10^3/uL (4.4-10.8)
[2025-03-10 11:06] LABS: ALT 19 U/L (16-63); AST 18 U/L (15-37); Albumin 4.0 g/dL (3.4-5.0); Alkaline Phosphatase 107 U/L (46-116); Anion Gap 9.9 mmol/L (3-11); BUN 12 mg/dL (7-18); Bilirubin, Total 0.3 mg/dL (0.2-1.0); C-Reactive Protein < 0.50 mg/dL (<or=0.5); CO2 28.1 mmol/L (21.0-32.0); Calcium 9.0 mg/dL (8.5-10.1); Chloride 101 mmol/L (98-107); Glucose 101 mg/dL (74-106); Potassium 4.4 mmol/L (3.5-5.1); Sodium 139 mmol/L (136-145); Total Protein 7.4 g/dL (6.4-8.2)
== END 2025-03-10 13:40 | disposition home or self-care (01) ==
LOC: LBN 13:39
PROVIDERS: PCP Family Medicine; Visit Provider Internal Medicine Infectious Disease
DX: T84.59XA Infection and inflammatory reaction due to other internal joint prosthesis, initial encounter (principal); Z96.669 Presence of unspecified artificial ankle joint
CPT/HCPCS: 80053; 85025; 86140

== ENCOUNTER 2025-03-17 14:14 | Outpatient (REF) | payer BC, SELFPAY ==
[2025-03-17 13:55] LABS: Abs Immature Grans 0.02 10^3/uL (0.0-0.06); HCT 39.9 % (40.0-50.0); HGB 13.0 g/dL (13.5-17.5); Immature Grans % 0.3 %; MCH 28.6 pg (27.0-33.0); MCHC 32.6 % (32.0-36.0); MCV 88 fL (80-95); MPV 9.4 fL (8.0-11.0); Platelet Count 251 10^3/uL (130-400); RBC 4.55 10^6/uL (4.36-5.78); RDW 13.3 % (11.8-14.1); RDW-SD 42.6 fL; WBC 5.98 10^3/uL (4.4-10.8)
[2025-03-17 14:05] LABS: ALT 11 U/L (10-49); AST 18 U/L (<34); Albumin 4.5 g/dL (3.4-5.0); Alkaline Phosphatase 94 U/L (46-116); Anion Gap 6.9 mmol/L (3-11); BUN 15 mg/dL (9-23); Bilirubin, Total 0.40 mg/dL (0.2-1.2); CO2 28.1 mmol/L (20.0-31.0); Calcium 9.4 mg/dL (8.3-10.6); Chloride 104 mmol/L (98-107); Glucose 83 mg/dL (74-106); Potassium 4.2 mmol/L (3.5-5.1); Sodium 139 mmol/L (136-145); Total Protein 7.2 g/dL (5.7-8.2)
[2025-03-17 14:14] LABS: C-Reactive Protein < 0.50 mg/dL (<=0.50)
== END 2025-03-17 14:15 | disposition home or self-care (01) ==
LOC: LBN 14:14
PROVIDERS: PCP Family Medicine; Visit Provider Internal Medicine Infectious Disease
DX: T84.59XA Infection and inflammatory reaction due to other internal joint prosthesis, initial encounter (principal); Z96.669 Presence of unspecified artificial ankle joint
CPT/HCPCS: 80053; 85025; 86140

== ENCOUNTER 2025-03-24 10:30 | Outpatient (REF) | payer BC, SELFPAY ==
[2025-03-24 11:02] LABS: Abs Immature Grans 0.01 10^3/uL (0.0-0.06); HCT 40.4 % (40.0-50.0); HGB 13.4 g/dL (13.5-17.5); Immature Grans % 0.2 %; MCH 29.0 pg (27.0-33.0); MCHC 33.2 % (32.0-36.0); MCV 87 fL (80-95); MPV 9.4 fL (8.0-11.0); Platelet Count 210 10^3/uL (130-400); RBC 4.62 10^6/uL (4.36-5.78); RDW 13.2 % (11.8-14.1); RDW-SD 42.0 fL; WBC 4.07 10^3/uL (4.4-10.8)
[2025-03-24 11:21] LABS: C-Reactive Protein < 0.50 mg/dL (<=0.50)
[2025-03-24 11:22] LABS: ALT 8 U/L (10-49); AST 15 U/L (<34); Albumin 4.6 g/dL (3.4-5.0); Alkaline Phosphatase 95 U/L (46-116); Anion Gap 8.9 mmol/L (3-11); BUN 16 mg/dL (9-23); Bilirubin, Total 0.60 mg/dL (0.2-1.2); CO2 29.1 mmol/L (20.0-31.0); Calcium 9.6 mg/dL (8.3-10.6); Chloride 102 mmol/L (98-107); Glucose 84 mg/dL (74-106); Potassium 4.3 mmol/L (3.5-5.1); Sodium 140 mmol/L (136-145); Total Protein 7.1 g/dL (5.7-8.2)
== END 2025-03-24 10:31 | disposition home or self-care (01) ==
LOC: LBN 10:30
PROVIDERS: PCP Family Medicine; Visit Provider Internal Medicine Infectious Disease
DX: T84.59XA Infection and inflammatory reaction due to other internal joint prosthesis, initial encounter (principal); Z96.669 Presence of unspecified artificial ankle joint
CPT/HCPCS: 80053; 85025; 86140

== ENCOUNTER 2025-03-31 11:25 | Outpatient (REF) | payer BC, MEDICAID, SELFPAY ==
[2025-03-31 10:56] LABS: Abs Immature Grans 0.01 10^3/uL (0.0-0.06); HCT 41.1 % (40.0-50.0); HGB 13.4 g/dL (13.5-17.5); Immature Grans % 0.2 %; MCH 28.5 pg (27.0-33.0); MCHC 32.6 % (32.0-36.0); MCV 87 fL (80-95); MPV 9.6 fL (8.0-11.0); Platelet Count 215 10^3/uL (130-400); RBC 4.70 10^6/uL (4.36-5.78); RDW 13.0 % (11.8-14.1); RDW-SD 41.6 fL; WBC 4.46 10^3/uL (4.4-10.8)
[2025-03-31 11:07] LABS: C-Reactive Protein < 0.50 mg/dL (<=0.50)
[2025-03-31 11:11] LABS: ALT 8 U/L (10-49); AST 15 U/L (<34); Albumin 4.6 g/dL (3.2-5.0); Alkaline Phosphatase 89 U/L (46-116); Anion Gap 9.4 mmol/L (3-11); BUN 14 mg/dL (9-23); Bilirubin, Total 0.50 mg/dL (0.2-1.2); CO2 27.6 mmol/L (20.0-31.0); Calcium 9.6 mg/dL (8.3-10.6); Chloride 103 mmol/L (98-107); Glucose 84 mg/dL (74-106); Potassium 4.3 mmol/L (3.5-5.1); Sodium 140 mmol/L (136-145); Total Protein 7.3 g/dL (5.7-8.2)
== END 2025-03-31 11:26 | disposition home or self-care (01) ==
LOC: LBN 11:25
PROVIDERS: PCP Family Medicine; Visit Provider Internal Medicine Infectious Disease
DX: T84.59XA Infection and inflammatory reaction due to other internal joint prosthesis, initial encounter (principal); Z96.669 Presence of unspecified artificial ankle joint
CPT/HCPCS: 80053; 85025; 86140

== ENCOUNTER 2025-04-07 13:49 | Outpatient (REF) | payer BC, SELFPAY ==
[2025-04-07 11:26] LABS: Abs Immature Grans 0.01 10^3/uL (0.0-0.06); HCT 39.6 % (40.0-50.0); HGB 13.3 g/dL (13.5-17.5); Immature Grans % 0.2 %; MCH 29.5 pg (27.0-33.0); MCHC 33.6 % (32.0-36.0); MCV 88 fL (80-95); MPV 9.8 fL (8.0-11.0); Platelet Count 218 10^3/uL (130-400); RBC 4.51 10^6/uL (4.36-5.78); RDW 13.2 % (11.8-14.1); RDW-SD 42.3 fL; WBC 4.18 10^3/uL (4.4-10.8)
[2025-04-07 11:37] LABS: C-Reactive Protein < 0.50 mg/dL (<=0.50)
[2025-04-07 11:38] LABS: ALT 9 U/L (10-49); AST 20 U/L (<34); Albumin 4.6 g/dL (3.2-5.0); Alkaline Phosphatase 85 U/L (46-116); Anion Gap 8.8 mmol/L (3-11); BUN 15 mg/dL (9-23); Bilirubin, Total 0.40 mg/dL (0.2-1.2); CO2 27.2 mmol/L (20.0-31.0); Calcium 9.7 mg/dL (8.3-10.6); Chloride 106 mmol/L (98-107); Glucose 87 mg/dL (74-106); Potassium 4.2 mmol/L (3.5-5.1); Sodium 142 mmol/L (136-145); Total Protein 7.1 g/dL (5.7-8.2)
== END 2025-04-07 13:50 | disposition home or self-care (01) ==
LOC: LBN 13:49
PROVIDERS: PCP Family Medicine; Visit Provider Internal Medicine Infectious Disease
DX: T84.59XA Infection and inflammatory reaction due to other internal joint prosthesis, initial encounter (principal); Z96.669 Presence of unspecified artificial ankle joint
CPT/HCPCS: 80053; 85025; 86140